=== PATIENT | male | born 1955 | race Caucasian/White ===

== ENCOUNTER 2025-04-09 21:28 | Emergency (ER) | payer MEDICARE, SELFPAY ==
[2025-04-09 21:33] VITALS: BP 187/89; PULSE 52; RESP 18; TEMP 36.8; O2SAT 97; BMI 23.5
[2025-04-09 22:06] VITALS: BP 176/77; PULSE 48; O2SAT 99
--- NOTE | 2025-04-09 22:10 | ED_ITS ---
HPI - Abdominal Pain 2 General: Chief Complaint: Abdominal Pain Stated Complaint: ABD Pain Time Seen by Provider: 04/09/25 21:44 History of Present Illness: Patient presents with acute onset of diffuse abdominal pain that began today around 2-3 PM, becoming severe by 4 PM. The pain is described as generalized throughout the abdomen without localization to any specific quadrant. Patient rates the pain as 7-8/10 prior to pain medication, now 3/10 after receiving analgesics from EMS. Patient reports associated vomiting x3 today, including after drinking water. The last episode of emesis was described as yellow and watery. Patient denies blood in vomit. Patient reports possible loose stool but is uncertain if it qualifies as diarrhea due to using an outhouse while camping. Denies hematochezia. Patient has been camping for 8 days, primarily drinking bottled water and occasionally water from '[employer]' (portable water source). Denies fever or body aches, stating symptoms are isolated to the abdomen. Reports inability to find a comfortable position. Patient mentions having tick bites while camping, with three ticks being removed. Denies similar episodes in the past. Patient attempted self-treatment with Tums but vomited afterward without relief. Denies improvement after vomiting, which led patient to believe this may not be food-related. Notes that no one else at the [facility] has become ill despite eating the same food. Related Data Previous Rx's ?Medication ?Instructions ?Recorded ondansetron 4 mg disintegrating 4 mg PO Q8H 3 days #9 tabs 04/10/25 tablet Review of Systems 2 General: Reports: 10 or more systems reviewed and unremarkable except in HPI and below Physical Exam 2 Const: COMMON NORMALS: no acute distress, patient oriented x3, alert and well nourished HENMT: COMMON NORMALS: normocephalic HEAD & SCALP: normocephalic Eye: COMMON NORMALS: Equal, round and reactive pupils present, EOMs intact bilaterally and conjunctivae normal CONJUNCTIVA: Yes conjunctivae normal P UPIL: Yes Equal, round and reactive pupils present Neck/C-Spine: COMMON NORMALS: full ROM, no lymphadenopathy, supple, no meningeal signs, no JVD and Thyroid normal THYROID: Thyroid normal Chest: COMMONS NORMALS: normal inspection of the chest and normal palpation of entire chest wall Resp: COMMON NORMALS: normal respiratory effort, No retractions, No use of accessory muscles, clear to auscultation bilaterally and percussion normal A USCULTATION: clear to auscultation bilaterally PERCUSSION: percussion normal Cardio: COMMON NORMALS: no JVD GI: COMMON NORMALS: Normal to inspection, nondistended, normoactive bowel sounds present, Soft to palpation, non-tender, No hepatosplenomegaly present, no masses and no bruits PALPATION: Yes Soft to palpation and Yes No hepatosplenomegaly present : COMMON NORMALS: Yes no CVA tenderness BLADDER/KIDNEY EXAM: Yes no CVA tenderness Back/Pelvis: COMMON NORMALS: no CVA tenderness Extremity: COMMON NORMALS: normal to inspection, full ROM, capillary refill normal, no joint enlargement, no clubbing, cyanosis or edema, no calf tenderness and no pedal edema Neuro: COMMON NORMALS: patient oriented x3 SENSORIUM/ORIENTATION: Yes alert MENINGEAL SIGNS: Yes no meningeal signs Skin: COMMON NORMALS: no rashes or lesions noted, turgor normal and no jaundice GENERAL SKIN EXAM: no rashes or lesions noted and turgor normal Course 2 Vital Signs: Vital signs: Vital Signs Temperature 98.3 F 04/09/25 21:33 Pulse Rate 58 L 04/10/25 00:00 Respiratory Rate 18 04/09/25 21:33 Blood Pressure 163/66 04/10/25 00:00 Pulse Oximetry 95 04/10/25 00:00 MDM - Abdominal Pain Medical Decision Making 1. Acute Abdominal Pain with Vomiting - Differential diagnosis includes: - Acute gastroenteritis (viral or bacterial) - Food poisoning - Appendicitis - Cholecystitis - Pancreatitis - Small bowel obstruction - Tick-borne illness (given camping history and reported tick bites) 2. Plan: - Continue IV fluid resuscitation for dehydration - Complete laboratory studies including CBC, CMP, lipase, urinalysis - Consider abdominal imaging (CT or ultrasound) based on laboratory results - Pain management with IV analgesics as needed - NPO status until vomiting resolves - Monitor for fever development or localization of abdominal pain - Consider tick-borne disease testing if fever develops - Reassess after initial interventions and test results Patient's presentation really is not consistent with cholecystitis. He had more diffuse abdominal pain that now has improved he has not had any significant ongoing symptoms he does not have an elevated white blood cell count. The patient's labs for the most part are nondiagnostic or normal. He would really like to go home and employ conservative care and I think that that is reasonable. With the CT scan and labs we have ruled out most of the more serious life-threatening type of issues and there was no acute inflammatory process identified in the abdomen or pelvis. He had reasonably normal vital signs I think it is reasonable to let him go home and I did give him return precautions and follow-up instructions he should follow-up on his alpha gal panel. Lab Data 04/09/25 21:37 04/09/25 21:37 Labs/Radiology: Radiology Impressions Abdomen/Pelvis CT 04/09/25 22:25 IMPRESSION: 1. Negative for acute inflammatory process in the abdomen or pelvis. 2. Cholelithiasis with gallbladder wall thickening, please correlate for cholecystitis and consider further evaluation with ultrasound. 3. Bilateral renal cysts, negative for follow-up advised. 4. Nodular prostate gland enlargement. 5. Bibasilar atelectasis. 6. Cardiomegaly. 7. Coronary artery atherosclerotic calcifications. 8. Spleen enlarged at 13.6 cm. COMMENTS: Consistent with the [employer]'s Incidental Findings Committee white paper (J Am Tee Radiol 2018): Any incidental renal lesion less than 1 cm or classified as too small to characterize, or any incidental cystic renal lesion characterized as simple-appearing, is likely benign. No follow-up imaging is recommended for these lesions per consensus recommendations based on imaging criteria. Laboratory Results WBC 8.48 10^3/uL (3.29-11.43) 04/09/25 21:37 RBC 5.06 10^6/uL (3.85-5.65) 04/09/25 21:37 Hgb 14.50 g/dL (11.27-16.99) 04/09/25 21:37 Hct 45.8 % (37-53) 04/09/25 21:37 MCV 90.5 fl (82-101) 04/09/25 21:37 MCH 28.7 pg (27-33) 04/09/25 21:37 MCHC 31.7 g/dL (30-55) 04/09/25 21:37 RDW 13.3 % (12.1-15.1) 04/09/25 21:37 Plt Count 149 10^3/cmm (157-399) L 04/09/25 21:37 MPV 11.7 fL (7.4-10.4) H 04/09/25 21:37 Neut % (Auto) 85.8 % 04/09/25 21:37 Lymph % (Auto) 8.5 % 04/09/25 21:37 Island % (Auto) 4.5 % 04/09/25 21:37 Eos % (Auto) 0.2 % 04/09/25 21:37 Baso % (Auto) 0.6 % 04/09/25 21:37 Neut # (Auto) 7.28 10^3/uL (1.8-7.7) 04/09/25 21:37 Lymph # (Auto) 0.7 10^3/uL (0.8-4.8) L 04/09/25 21:37 Island # (Auto) 0.4 10^3/uL (0.2-0.9) 04/09/25 21:37 Eos # (Auto) 0.0 10^3/uL (0.0-0.8) 04/09/25 21:37 Baso # (Auto) 0.1 10^3/uL (0.0-0.1) 04/09/25 21:37 Nucleated RBC % (auto) 0 % 04/09/25 21:37 Nucleated RBCs # 0.0 /100WBC 04/09/25 21:37 Sodium 137 mmol/L (136-145) 04/09/25 21:37 Potassium 3.7 mmol/L (3.5-5.1) 04/09/25 21:37 Chloride 101 mmol/L (98-107) 04/09/25 21:37 Carbon Dioxide 27 mmol/L (22-29) 04/09/25 21:37 Anion Gap 12.7 (5-19) 04/09/25 21:37 BUN 14 mg/dL (8-23) 04/09/25 21:37 Creatinine 0.9 mg/dL (0.7-1.2) 04/09/25 21:37 GFR Calculation 83.4 mL/min (90-130) L 04/09/25 21:37 Glucose 132 mg/dL (65-115) H 04/09/25 21:37 Calculated Osmolality 286 mOsm/kg (285-295) 04/09/25 21:37 Calcium 8.6 mg/dL (8.5-10.5) 04/09/25 21:37 Magnesium 2.1 mg/dL (1.7-2.3) 04/09/25 21:37 Total Bilirubin 1.5 mg/dL (0.15-1.2) H 04/09/25 21:37 AST 20 U/L (0-40) 04/09/25 21:37 ALT 14 U/L (0-41) 04/09/25 21:37 Alkaline Phosphatase 92 U/L (40-130) 04/09/25 21:37 Total Protein 6.4 g/dL (6.6-8.7) L 04/09/25 21:37 Albumin 3.8 g/dL (3.5-5.2) 04/09/25 21:37 Globulin 2.6 g/dL (1.3-4.6) 04/09/25 21:37 Lipase 25 U/L (13-60) 04/09/25 21:37 Urine Color Yellow (Yellow) 04/09/25 21:37 Urine Appearance Clear (CLEAR) 04/09/25 21:37 Urine pH 5.0 (5-7) 04/09/25 21:37 Ur Specific [facility] 1.021 (1.005-1.030) 04/09/25 21:37 Urine Protein Negative (Negative) 04/09/25 21:37 Urine Glucose (UA) Negative (Normal) 04/09/25 21:37 Urine Ketones 2+ (Negative) H 04/09/25 21:37 Urine Blood Negative (Negative) 04/09/25 21:37 Urine Nitrate Negative (Negative) 04/09/25 21:37 Urine Bilirubin Negative (Negative) 04/09/25 21:37 Urine Urobilinogen 0.2 mg/dL (Negative) 04/09/25 21:37 Ur Leukocyte Esterase Negative (Negative) 04/09/25 21:37 Urine RBC 0-2 /hpf (0-2) 04/09/25 21:37 Urine WBC 0-5 /hpf (0-5) 04/09/25 21:37 Ur Squamous Epith Cells 0-5 /hpf (0-5) 04/09/25 21:37 Amorphous Sediment Not Reportable 04/09/25 21:37 Urine Bacteria None seen /hpf (NONE) 04/09/25 21:37 Hyaline Casts 0.81 /lpf 04/09/25 21:37 All radiology interpretation(s) finalized by discharge ED provider radiology interpretation(s): See above Discharge Plan Discharge Patient Disposition: Home Clinical Impression: Abdominal pain, Cholelithiasis Condition: Stable Prescriptions: New ondansetron 4 mg tablet,disintegrating 4 mg PO Q8H 3 Days Qty: 9 0RF Discharge Orders: Discharge ED (Routine); Ordered 04/10/25 Ordered By: Colton Ram Discharge Diet: Full LIquid Discharge Activity: Limit activity as instructed Patient Instructions: Abdominal Pain (ED), Opioid Safety, Pain Management Activity Restrictions/Additional Instructions: 1. Stay on a liquid diet take prescription as needed and as directed. 2. Patient should have a recheck next week if not improved and I will need followed up on alpha gal testing. 3. Return to the emergency department for high fever, blood in vomit or stool or worsening abdominal pain. Print Language: Angolan Coding Level of Care Code ED Swimming Professor for Rodríguez Corona
--- NOTE | 2025-04-09 22:25 | CTR_ITS ---
PROCEDURE INFORMATION: Exam: CT Abdomen And Pelvis With Contrast Exam date and time: 04/09/2025 11:18 PM Age: 69 years old Clinical indication: Vomiting; Abdominal pain; Generalized; Prior surgery; Surgery date: 6+ months; Surgery type: Inguinal hernia repair; Additional info: Abd pain / intractable vomiting, [id number] ardon, PT profusely puking and cannot hold down oral TECHNIQUE: Imaging protocol: Computed tomography of the abdomen and pelvis with contrast. Radiation optimization: All CT scans at this facility use at least one of these dose optimization techniques: automated exposure control; mA and/or kV adjustment per patient size (includes targeted exams where dose is matched to clinical indication); or iterative reconstruction. Contrast material: OMNI 350; Contrast volume: 100 ml; Contrast route: INTRAVENOUS (IV); COMPARISON: No relevant prior studies available. RADIATION DOSE METRICS: Total DLP (mGy-cm): 449.8 FINDINGS: Lungs: Bibasilar atelectasis. Heart: Cardiomegaly. Coronary arteries: Coronary artery atherosclerotic calcifications. Liver: Normal. No mass. Gallbladder and biliary ducts: Cholelithiasis with gallbladder wall thickening, please correlate for cholecystitis and consider further evaluation with ultrasound. Pancreas: Normal. No ductal dilation. Spleen: Spleen enlarged at 13.6 cm. Adrenal glands: Normal. No mass. Kidneys and ureters: Bilateral renal cysts, negative for follow-up advised. Stomach and bowel: Unremarkable. No obstruction. No mucosal thickening. Appendix: No evidence of appendicitis. Intraperitoneal space: Unremarkable. No free air. No significant fluid collection. Vasculature: Unremarkable. No abdominal aortic aneurysm. Lymph nodes: Unremarkable. No enlarged lymph nodes. Urinary bladder: Unremarkable as visualized. Reproductive: Nodular prostate gland enlargement. Bones/joints: Unremarkable. No acute fracture. Soft tissues: Unremarkable. CT/CT abdomen pelvis w con* [id number] IMPRESSION: 1. Negative for acute inflammatory process in the abdomen or pelvis. 2. Cholelithiasis with gallbladder wall thickening, please correlate for cholecystitis and consider further evaluation with ultrasound. 3. Bilateral renal cysts, negative for follow-up advised. 4. Nodular prostate gland enlargement. 5. Bibasilar atelectasis. 6. Cardiomegaly. 7. Coronary artery atherosclerotic calcifications. 8. Spleen enlarged at 13.6 cm. COMMENTS: Consistent with the [employer]'s Incidental Findings Committee white paper (J Am Tee Radiol 2018): Any incidental renal lesion less than 1 cm or classified as too small to characterize, or any incidental cystic renal lesion characterized as simple-appearing, is likely benign. No follow-up imaging is recommended for these lesions per consensus recommendations based on imaging criteria.
[2025-04-09 22:31] LABS: Basophils # 0.1 10^3/uL (0.0-0.1); Basophils % 0.6 %; Eosinophils % 0.2 %; Hematocrit 45.8 % (37-53); Lymphocytes # 0.7 10^3/uL (0.8-4.8); Lymphocytes % 8.5 %; Mean Corpuscular HGB Conc 31.7 g/dL (30-55); Mean Corpuscular Hemoglobin 28.7 pg (27-33); Mean Corpuscular Volume 90.5 fl (82-101); Mean Platelet Volume 11.7 fL (7.4-10.4); Monocytes # 0.4 10^3/uL (0.2-0.9); Monocytes % 4.5 %; Neutrophils # 7.28 10^3/uL (1.8-7.7); Neutrophils % 85.8 %; Nucleated Red Blood Cells % 0 %; Platelet Count 149 10^3/cmm (157-399); Red Blood Count 5.06 10^6/uL (3.85-5.65); Red Cell Distribution Width 13.3 % (12.1-15.1); White Blood Count 8.48 10^3/uL (3.29-11.43)
[2025-04-09 22:42] LABS: Alanine Aminotransferase 14 U/L (0-41); Albumin Level 3.8 g/dL (3.5-5.2); Alkaline Phosphatase 92 U/L (40-130); Anion Gap 12.7 (5-19); Aspartate Amino Transferase 20 U/L (0-40); Blood Urea Nitrogen 14 mg/dL (8-23); Calcium 8.6 mg/dL (8.5-10.5); Carbon Dioxide 27 mmol/L (22-29); Chloride 101 mmol/L (98-107); Creatinine Clr Calc Pharmacy 72.2422; Globulin 2.6 g/dL (1.3-4.6); Glomerular Filtration Rate 83.4 mL/min (90-130); Glucose 132 mg/dL (65-115); Lipase 25 U/L (13-60); Magnesium 2.1 mg/dL (1.7-2.3); Osmolality Calculated 286 mOsm/kg (285-295); Potassium 3.7 mmol/L (3.5-5.1); Sodium 137 mmol/L (136-145); Total Bilirubin 1.5 mg/dL (0.15-1.2); Total Protein 6.4 g/dL (6.6-8.7)
[2025-04-09 22:47] LABS: Bilirubin Urine Negative (Negative); Blood Urine Negative (Negative); Glucose Urine UA Negative (Normal); Ketones Urine 2+ (Negative); Leukocyte Esterase Urine Negative (Negative); Nitrate Urine Negative (Negative); Protein Urine Negative (Negative); Specific Gravity, Urine 1.021 (1.005-1.030); Urine Appearance Clear (CLEAR); Urine Color Yellow (Yellow); Urobilinogen Urine 0.2 mg/dL (Negative)
[2025-04-09] MEDS: sodium chloride 0.9% 500 ML IV (22:48)
[2025-04-09 22:52] LABS: Add Urine Microscopic? YES; Bacteria Urine None Seen /hpf; Hyaline Casts Urine 0.81 /lpf; RBC Urine 0-2 /hpf (0-2); Squamous Epithelial Cell Urine 0-5 /hpf (0-5); WBC Urine 0-5 /hpf (0-5)
[2025-04-09 22:56] LABS: Add Urine Culture? No
[2025-04-09 23:06] VITALS: BP 185/58; PULSE 61; O2SAT 93
[2025-04-09] MEDS: iohexol 350 mg/mL 500 mL Btl (per mL) IV (23:18)
[2025-04-10] VITALS: BP 163/66; PULSE 58; O2SAT 95
[2025-04-10] MEDS: lidocaine 2% viscous 15 ML, aluminum-mag hydrox-simethicon 30 ML, sucralfate oral liq 1 GM PO (01:08)
[2025-04-10] MEDS: ondansetron 2 mg/ML SDV 2 mL 4 MG IVP (01:18)
[2025-04-10 01:47] VITALS: BP 155/59; PULSE 59; O2SAT 96
[2025-04-14 16:14] LABS: Beef (27) IgE 1.57 kU/L; Beef Class 2; Lamb Class 2; Pork (F26) IgE 0.52 kU/L; Pork Class 1
== END 2025-04-10 01:25 | disposition home or self-care (01) ==
PROVIDERS: Emergency Provider Family Medicine
DX: R10.9 Unspecified abdominal pain (principal); K80.20 Calculus of gallbladder without cholecystitis without obstruction
CPT/HCPCS: 74177; 80053; 81001; 83690; 83735; 85025; 86003; 86008; 96374; 99285; J2405; J7040; J9999